=== PATIENT | female | born 1970 | race Native Hawaiian/Other Pacific Islander ===

== ENCOUNTER 2017-10-06 09:51 | Outpatient (CLI) | payer BC | END 2017-10-06 10:55 | disposition home or self-care (01) | LOC: MAMMO 09:51 | DX: Z12.31 Encounter for screening mammogram for malignant neoplasm of breast (principal) | CPT/HCPCS: G0202-TC ==

== ENCOUNTER 2018-10-27 11:29 | Outpatient (CLI) | payer BC | END 2018-10-27 23:40 | disposition home or self-care (01) | LOC: MAMMO 11:29 | DX: Z12.31 Encounter for screening mammogram for malignant neoplasm of breast (principal) ==

== ENCOUNTER 2019-11-28 09:06 | Outpatient (CLI) | payer BC | END 2019-11-28 17:00 | disposition home or self-care (01) | LOC: MAMMO 09:06 | DX: Z12.31 Encounter for screening mammogram for malignant neoplasm of breast (principal) ==

== ENCOUNTER 2019-12-05 13:35 | Outpatient (CLI) | payer BC | END 2019-12-05 19:35 | disposition home or self-care (01) | LOC: MAMMO 13:35 | DX: N64.89 Other specified disorders of breast (principal) ==

== ENCOUNTER 2020-12-10 09:55 | Outpatient (CLI) | payer BC | END 2020-12-10 23:17 | disposition home or self-care (01) | LOC: MAMMO 09:55 | PROVIDERS: ATTEND Specialist | DX: Z12.31 Encounter for screening mammogram for malignant neoplasm of breast (principal) ==

== ENCOUNTER 2021-12-12 13:57 | Outpatient (CLI) | payer BC | END 2021-12-12 20:38 | disposition home or self-care (01) | LOC: MAMMO 13:57 | PROVIDERS: ATTEND Specialist | DX: Z12.31 Encounter for screening mammogram for malignant neoplasm of breast (principal) ==

== ENCOUNTER 2022-12-14 10:44 | Outpatient (CLI) | payer BC | END 2022-12-14 19:24 | disposition home or self-care (01) | LOC: MAMMO 10:44 | PROVIDERS: ATTEND Specialist | DX: Z12.31 Encounter for screening mammogram for malignant neoplasm of breast (principal) ==